=== PATIENT | male | born 1950 | race Caucasian/White ===

== ENCOUNTER 2016-11-05 08:02 | Emergency (ER) | payer OTHER ==
--- NOTE | 2016-11-05 08:21 | UCPHY ---
H & P Time Seen by Provider: 11/05/16 08:20 Patient Type: Established HPI/ROS: Chief complaint. Cough HPI. 65-year-old male presents emergency department with cough and congestion for 4 days. Cough is nonproductive. No fever. No flu shot. Exposure to who had similar symptoms. He has some chest discomfort and diffusely with coughing but not in between times. He attributes this to muscle soreness from coughing. No abdominal pain vomiting or diarrhea. ROS Constitutional. no fever/chills, no weakness Eyes. no problems with vision ENT. Nasal congestion Cardiovascular. Diffuse anterior chest discomfort with cough Respiratory. No shortness of breath. Nonproductive cough Abdominal. no abdominal pain, no nausea/vomiting, no diarrhea . no problems urinating MS. no calf pain/swelling, no neck/back pain, no joint pain Skin. no rash Lymph. no swollen glands Neuro. no headache, no dizziness, no difficulty walking or with speech Past Medical/Surgical History: Hypertension, kidney stone Social History: , nonsmoker, no alcohol Smoking Status: Never smoked Physical Exam: General Appearance: Alert well-developed male mild distress vital signs are stable Eyes: Pupils equal and round no pallor or injection. ENT, tympanic membranes normal. Pharynx slightly injected without exudate. Mucous membranes are moist Respiratory: There are no retractions, lungs are clear to auscultation. Cardiovascular: Regular rate and rhythm. Gastrointestinal: Abdomen is soft and nontender, no masses, bowel sounds normal. Neurological: Awake and alert, sensory and motor exams grossly normal. Skin: Warm and dry, no rashes. Musculoskeletal: Neck is supple nontender. Extremities symmetrical, full range of motion. Psychiatric: Patient is oriented X 3, there is no agitation. Constitutional: Initial Vital Signs Temperature (C) 36.6 C 11/05/16 08:21 Heart Rate 60 11/05/16 08:21 Respiratory Rate 16 11/05/16 08:21 Blood Pressure 155/91 H 11/05/16 08:21 O2 Sat (%) 95 11/05/16 08:21 O2 Delivery Mode Room Air Allergies/Adverse Reactions: codeine Allergy (Verified 11/05/16 08:23) Penicillins Allergy (Verified 11/05/16 08:28) Home Medications: Medication Instructions Recorded Lisinopril 04/29/16 Benzonatate [Tessalon Pearles (RX)] 200 mg PO TID PRN #14 cap 11/05/16 FLUoxetine 11/05/16 Levothyroxine 11/05/16 OLANZapine 11/05/16 Medical Decision Making ED Course/Re-evaluation: Patient and I discussed treatment plan including criteria for return and importance of follow-up and further evaluation. He expresses understanding and agrees Patient remained stable Differential Diagnosis: Likely this is influenza that is past time for treatment with Tamiflu. I considered pneumonia, bronchitis. I have considered bacterial versus viral syndfrome. I think the patient's chest discomfort is secondary to coughing and not secondary to coronary artery disease Departure - Departure Disposition: Home, Routine, Self-Care Clinical Impression: Influenza Condition: Good Instructions: Influenza (ED) Additional Instructions: Drink plenty of fluids and stay hydrated. Plenty of rest in easy activity. Tessalon Perles for cough. Return for worsening chest discomfort or breathing. Recheck in 3-4 days if not improving Referrals: Jluis Fernandez MD [Primary Care Provider] - 3-4 days, if not improved Prescriptions: Benzonatate [Tessalon Pearles (RX)] 200 mg PO TID PRN #14 cap PRN Reason: Cough, Moderate - PQRS PQRS Measurement: 134: Depression screening and followup, PRIME MD-PHQ2 (12 years and older) Over the last 2 weeks, how often have you been bothered by any of the following problems? 1. Feeling down, depressed, or hopeless? 2. Little interest or pleasure in doing things? Patient answered no to both 1 and 2 130: Documentation of medications. Reviewed all patient medications, doses, route and frequency. 226: Do you smoke? No.
[2016-11-05 08:23] VITALS: BP 155/91; PULSE 60; RESP 16; TEMP 97.9; O2SAT 95
== END 2016-11-05 08:40 | disposition home or self-care (01) ==
LOC: CED 08:02
DX: R05 Cough (principal)
CPT/HCPCS: 87400-PO; 99214-PO; G0463-PO